=== PATIENT | male | born 1965 | race African-American/Black ===

== ENCOUNTER 2018-10-29 08:36 | Inpatient (IN) | payer OTHER ==
[2018-10-29 10:14] VITALS: BMI 29.4
--- NOTE | 2018-10-29 10:42 | HP ---
CIWA Score - Admission Criteria [facility] Guidelines: Admission for Medically Managed Detox: Requires at least one of the followin. CIWA greater than 12 2. Seizures within the past 24 hours 3. Delirium tremens within the past 24 hours 4. Hallucinations within the past 24 hours 5. Acute intervention needed for co occurring medical disorder 6. Acute intervention needed for co occurring psychiatric disorder 7. Severe withdrawal that cannot be handled at a lower level of care (continued vomiting, continued diarrhea, abnormal vital signs) requiring intravenous medication and/or fluids 8. Admission ROS [facility] - HPI Chief Complaint: i need help to stop drinking alcohol and pcp Allergies/Adverse Reactions: Allergies Allergy/AdvReac Type Severity Reaction Status Date / Time bee sting Allergy Uncoded 10/29/18 10:39 History of Present Illness: this 53 years old male with alcohol and pcp abuse,,last treatment in [facility],requested rehab hypertension on med tendinitis o right knee and ankle nicotine dependence depression no medication longest sobriety 2 years in detox treatment recently Exam Limitations: No Limitations - Ebola screening Have you traveled outside of the country in the last 21 days: No Have you had contact with anyone from an Ebola affected area: No Have you been sick,other than usual withdrawal symptoms: No Do you have a fever: No - Review of Systems Constitutional: No Symptoms Reported EENT: reports: No Symptoms Reported Respiratory: reports: No Symptoms reported Cardiac: reports: No Symptoms Reported GI: reports: No Symptoms Reported : reports: No Symptoms Reported Musculoskeletal: reports: No Symptoms Reported Integumentary: reports: No Symptoms Reported Neuro: reports: No Symptoms reported Endocrine: reports: No Symptoms Reported Hematology: reports: No Symptoms Reported Psychiatric: reports: Depressed Patient History - Patient Medical History Hx Anemia: No Hx Asthma: No Hx Chronic Obstructive Pulmonary Disease (COPD): No Hx Cardiac Disorders: No Hx Congestive Heart Failure: No Hx Hypertension: No (on med) Hx Hypercholesterolemia: No Hx Pacemaker: No HX Cerebrovascular Accident: No Hx Seizures: No Hx Dementia: No Hx Diabetes: No Hx Gastrointestinal Disorders: No Hx Liver Disease: No Hx Genitourinary Disorders: No Hx Sexually Transmitted Disorders: No Hx Renal Disease (ESRD): No Hx Thyroid Disease: No Hx Human Immunodeficiency Virus (HIV): No (last 2017 negative) Hx Hepatitis C: No Hx Depression: Yes (nomed) Hx Suicide Attempt: Yes (cutter at age 43) Hx Bipolar Disorder: No Hx Schizophrenia: No Other Medical History: no suicidal,no homicidal - Patient Surgical History Past Surgical History: No - PPD History Previous Implant?: Yes Documented Results: Negative w/o proof Implanted On Prior [facility] Admission?: No PPD to be Administered?: Yes - Smoking Cessation Smoking history: Current every day smoker Have you smoked in the past 12 months: Yes Aproximately how many cigarettes per day: 2 Cigars Per Day: 0 Hx Chewing Tobacco Use: No Initiated information on smoking cessation: Yes 'Breaking Loose' booklet given: 10/29/18 - Substance & Tx. History Hx Alcohol Use: Yes Hx Substance Use: Yes Substance Use Type: Alcohol Hx Substance Use Treatment: Yes ([facility] in 2018) - Substances Abused Alcohol Route: Oral Frequency: Daily Amount used: 5 of 24 ozs of beer Age of first use: 18 Date of Last Use: 10/27/18 PCP Route: Smoking Frequency: 1-2 times per week Amount used: 10$ Age of first use: 30 Date of Last Use: 10/27/18 Family Disease History - Family Disease History Family Disease History: Other: Father (alcohol,) Admission Physical Exam S - Vital Signs Vital Signs: Vital Signs - 24 hr 10/29/18 10:08 Temperature 97.1 F L Pulse Rate 70 Respiratory 18 Rate Blood Pressure 147/105 H - Physical General Appearance: Yes: Within Normal Limits HEENTM: Yes: Normal ENT Inspection, JUDI, Pharynx Normal Respiratory: Yes: Within Normal Limits, Lungs Clear, Normal Breath Sounds Neck: Yes: Within Normal Limits, Supple, Trachea in good position Breast: Yes: Within Normal Limits Cardiology: Yes: Within Normal Limits, Regular Rhythm, Regular Rate, S1, S2 Abdominal: Yes: Within Normal Limits, Normal Bowel Sounds, Non Tender, Flat, Soft Genitourinary: Yes: Within Normal Limits Back: Yes: Within Normal Limits Musculoskeletal: Yes: Within Normal Limits Extremities: Yes: Within Normal Limits Neurological: Yes: Within Normal Limits, analyst microbiology lab II-XII NML intact, Fully Oriented, Alert, Motor Strength 5/5 Integumentary: Yes: Within Normal Limits Lymphatic: Yes: Within Normal Limits - Diagnostic (1) Alcohol dependence Current Visit: Yes Status: Acute (2) PCP (phencyclidine) abuse Current Visit: Yes Status: Acute (3) Arthritis Current Visit: Yes Status: Acute (4) Essential hypertension Current Visit: Yes Status: Acute (5) Depression Current Visit: Yes Status: Acute Cleared for Admission [facility] - Detox or Rehab Claeared for Rehab Admission: Yes S Breath Alcohol Content Breath Alcohol Content: 0 Urine Drug Screen - Results Drug Screen Negative: Yes Inpatient Rehab Admission - Initial Determination Are CD services needed?: Yes Free of communicable disease: Yes Not in need of hospitalization: Yes - Rehab Admission Criteria Previous failed treatment: Yes Poor recovery environment: Yes Comorbidities: Yes Lacks judgement: No Patient is meeting Inpatient Rehab admission criteria:: Yes
[2018-10-29] MEDS ORDERED: P-EPHED 60MG/TRIPROLIDI 2.5MG TABLET PO PRN (11:51)
[2018-10-29] MEDS ORDERED: MAG HYDROX/AL HYDROX/SIMETH 30 ML UNIT-DOSE CUP PO PRN (11:51)
[2018-10-29] MEDS ORDERED: LOPERAMIDE HCL 2 MG CAPSULE PO PRN (11:51)
[2018-10-29] MEDS ORDERED: MENTHOL/PHENOL 1 EACH UD MM PRN (11:51)
[2018-10-29] MEDS ORDERED: MAGNESIUM HYDROX 2400MG/30ML ORAL SUSPENSION 30 ML CUP PO PRN (11:51)
[2018-10-29] MEDS ORDERED: MAGNESIUM CITRATE 300 ML BOTTLE PO PRN (11:51)
[2018-10-29] MEDS ORDERED: ACETAMINOPHEN 325 MG TABLET (FP) PO PRN (11:51)
[2018-10-29] MEDS ORDERED: hydrOXYzine PAMOATE 50 MG CAPSULE (FP) PO PRN (11:51)
[2018-10-29] MEDS ORDERED: IBUPROFEN 400 MG TABLET (FP) PO PRN (11:51)
[2018-10-29] MEDS ORDERED: guaiFENesin/D-METHORPHAN HB 10 ML UNIT-DOSE CUPS PO PRN (11:51)
[2018-10-29 14:43] LABS: HEMOGLOBIN 13.1 GM/dL (11.7-16.9); MCH 27.4 pg (25.7-33.7); MCHC 31.8 g/dl (32.0-35.9); MEAN PLT VOLUME 9.3 fl (7.5-11.1); PLATELET COUNT 269 K/MM3 (134-434); RBC 4.77 M/mm3 (4.00-5.60); RDW 13.8 % (11.9-15.9); WHITE BLOOD COUNT 11.6 K/mm3 (4.0-10.0)
[2018-10-29 15:01] LABS: ALBUMIN 3.8 g/dl (3.4-5.0); ALK PHOS 114 U/L (45-117); ANION GAP 7 MMOL/L (8-16); BILIRUBIN,TOTAL 0.3 mg/dL (0.2-1); BLOOD UREA NITROGEN 11 mg/dL (7-18); CALCIUM 8.6 mg/dL (8.5-10.1); CHLORIDE 99 mmol/L (98-107); CO2 27 mmol/L (21-32); CREATININE 0.9 mg/dL (0.55-1.3); GLUCOSE,RANDOM 96 mg/dL (74-106); POTASSIUM 3.9 mmol/L (3.5-5.1); SGOT/AST 24 U/L (15-37); SGPT/ALT 39 U/L (13-61); SODIUM 134 mmol/L (136-145); TOT PROT 7.3 g/dl (6.4-8.2)
[2018-10-29 17:39] LABS: URINE APPEARANCE CLEAR; URINE BILIRUBIN NEGATIVE (<2.0 mg/dL); URINE COLOR STRAW; URINE GLUCOSE (UA) NEGATIVE (NEGATIVE); URINE KETONE NEGATIVE (NEGATIVE); URINE LEUK ESTERASE NEGATIVE (NEGATIVE); URINE NITRITE NEGATIVE (NEGATIVE); URINE PROTEIN NEGATIVE (NEGATIVE); URINE UROBILINOGEN NEGATIVE mg/dL (0.2-1.0)
[2018-10-29] MEDS: THIAMINE HCL 100 MG TABLET (FP) PO SCH (21:08)
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
[2018-10-30] MEDS: PRENATAL VITAMINS W/ FOLIC ACID TABLET (FP) PO SCH (09:41)
--- NOTE | 2018-10-30 10:07 | EKG ---
Test Reason : Blood Pressure : / mmHG Vent. Rate : 073 BPM Atrial Rate : 073 BPM P-R Int : 136 ms QRS Dur : 138 ms QT Int : 428 ms P-R-T Axes : 019 270 053 degrees QTc Int : 471 ms NORMAL SINUS RHYTHM RIGHT BUNDLE BRANCH BLOCK ABNORMAL ECG NO PREVIOUS ECGS AVAILABLE Confirmed by Rhett Cruz MD ([id number]) on 10/30/2018 10:06:28 AM Referred By: Confirmed By:Rhett Cruz MD
[2018-10-30] MEDS: NAPROXEN 500 MG TABLET (FP) PO SCH (23:19)
[2018-10-30] MEDS: THIAMINE HCL 100 MG TABLET (FP) PO SCH (23:20)
[2018-10-31] MEDS: amLODIPine BESYLATE 10 MG TABLET (FP) PO SCH (09:50)
[2018-10-31] MEDS: PRENATAL VITAMINS W/ FOLIC ACID TABLET (FP) PO SCH (09:50)
[2018-10-31] MEDS: NAPROXEN 500 MG TABLET (FP) PO SCH (09:50)
--- NOTE | 2018-10-31 11:54 | PN ---
[facility] Progress Note Note: PT DECLINED TO CONTINUE WITH NAPROSYN. PT IS ALSO ON VOLTAREN. Vital Signs 10/31/18 10/31/18 06:43 09:00 Temperature 97.8 F 97.8 F Pulse Rate 71 86 Respiratory 18 18 Rate Blood Pressure 132/85 117/69 Laboratory Tests 10/29/18 10/29/18 10/29/18 12:00 12:00 12:00 WBC 11.6 H RBC 4.77 Hgb 13.1 Hct 41.0 MCV 86.0 MCH 27.4 MCHC 31.8 L RDW 13.8 Plt Count 269 MPV 9.3 Sodium 134 L Potassium 3.9 Chloride 99 Carbon Dioxide 27 Anion Gap 7 L BUN 11 Creatinine 0.9 Creat Clearance w eGFR > 60 Random Glucose 96 Calcium 8.6 Total Bilirubin 0.3 AST 24 ALT 39 Alkaline Phosphatase 114 Total Protein 7.3 Albumin 3.8 Urine Color Urine Appearance Urine pH Ur Specific Hope Urine Protein Urine Glucose (UA) Urine Ketones Urine Blood Urine Nitrite Urine Bilirubin Urine Urobilinogen Ur Leukocyte Esterase RPR Titer Nonreactive HIV 1&2 Antibody Screen HIV P24 Antigen 10/29/18 10/29/18 12:00 14:20 WBC RBC Hgb Hct MCV MCH MCHC RDW Plt Count MPV Sodium Potassium Chloride Carbon Dioxide Anion Gap BUN Creatinine Creat Clearance w eGFR Random Glucose Calcium Total Bilirubin AST ALT Alkaline Phosphatase Total Protein Albumin Urine Color Straw Urine Appearance Clear Urine pH 8.0 Ur Specific Hope 1.008 L Urine Protein Negative Urine Glucose (UA) Negative Urine Ketones Negative Urine Blood Negative Urine Nitrite Negative Urine Bilirubin Negative Urine Urobilinogen Negative Ur Leukocyte Esterase Negative RPR Titer HIV 1&2 Antibody Screen Negative HIV P24 Antigen Negative PLAN:D/C NAPROSYN RESTART VOLTAREN 75 MG PO BID
[2018-10-31] MEDS: MELATONIN 5 MG TABLETS PO PRN (21:28)
[2018-10-31] MEDS: THIAMINE HCL 100 MG TABLET (FP) PO SCH (21:28)
[2018-10-31] MEDS: DICLOFENAC SODIUM 75 MG TABLET.DR PO SCH (21:29)
[2018-11-01] MEDS: amLODIPine BESYLATE 10 MG TABLET (FP) PO SCH (09:44)
[2018-11-01] MEDS: PRENATAL VITAMINS W/ FOLIC ACID TABLET (FP) PO SCH (09:44)
[2018-11-01] MEDS: DICLOFENAC SODIUM 75 MG TABLET.DR PO SCH ×2 (09:44→22:03)
[2018-11-01] MEDS: MELATONIN 5 MG TABLETS PO PRN (22:03)
[2018-11-01] MEDS: THIAMINE HCL 100 MG TABLET (FP) PO SCH (22:03)
[2018-11-02] MEDS: PRENATAL VITAMINS W/ FOLIC ACID TABLET (FP) PO SCH (09:52)
[2018-11-02] MEDS: amLODIPine BESYLATE 10 MG TABLET (FP) PO SCH (09:52)
[2018-11-02] MEDS: DICLOFENAC SODIUM 75 MG TABLET.DR PO SCH ×2 (09:53→21:48)
[2018-11-02] MEDS: THIAMINE HCL 100 MG TABLET (FP) PO SCH (21:48)
[2018-11-02] MEDS: MELATONIN 5 MG TABLETS PO PRN (21:48)
[2018-11-03] MEDS: amLODIPine BESYLATE 10 MG TABLET (FP) PO SCH (09:32)
[2018-11-03] MEDS: PRENATAL VITAMINS W/ FOLIC ACID TABLET (FP) PO SCH (09:32)
[2018-11-03] MEDS: DICLOFENAC SODIUM 75 MG TABLET.DR PO SCH ×2 (09:32→21:04)
[2018-11-03] MEDS: THIAMINE HCL 100 MG TABLET (FP) PO SCH (21:04)
[2018-11-03] MEDS: MELATONIN 5 MG TABLETS PO PRN (21:04)
[2018-11-04] MEDS: DICLOFENAC SODIUM 75 MG TABLET.DR PO SCH ×2 (09:48→21:41)
[2018-11-04] MEDS: PRENATAL VITAMINS W/ FOLIC ACID TABLET (FP) PO SCH (09:48)
[2018-11-04] MEDS: amLODIPine BESYLATE 10 MG TABLET (FP) PO SCH (09:48)
[2018-11-04] MEDS ORDERED: PT OWN MED DRAWER 7, Y5N ONE (19:53)
[2018-11-04] MEDS: THIAMINE HCL 100 MG TABLET (FP) PO SCH (21:41)
[2018-11-04] MEDS: MELATONIN 5 MG TABLETS PO PRN (21:43)
[2018-11-05] MEDS: amLODIPine BESYLATE 10 MG TABLET (FP) PO SCH (10:07)
[2018-11-05] MEDS: PRENATAL VITAMINS W/ FOLIC ACID TABLET (FP) PO SCH (10:07)
[2018-11-05] MEDS: DICLOFENAC SODIUM 75 MG TABLET.DR PO SCH ×2 (10:07→21:34)
[2018-11-05] MEDS: THIAMINE HCL 100 MG TABLET (FP) PO SCH (21:34)
[2018-11-06] MEDS: DICLOFENAC SODIUM 75 MG TABLET.DR PO SCH ×2 (10:14→21:32)
[2018-11-06] MEDS: amLODIPine BESYLATE 10 MG TABLET (FP) PO SCH (10:14)
[2018-11-06] MEDS: PRENATAL VITAMINS W/ FOLIC ACID TABLET (FP) PO SCH (10:14)
[2018-11-06] MEDS: THIAMINE HCL 100 MG TABLET (FP) PO SCH (21:32)
[2018-11-07] MEDS: PRENATAL VITAMINS W/ FOLIC ACID TABLET (FP) PO SCH (09:49)
[2018-11-07] MEDS: DICLOFENAC SODIUM 75 MG TABLET.DR PO SCH ×2 (09:49→21:46)
[2018-11-07] MEDS: amLODIPine BESYLATE 10 MG TABLET (FP) PO SCH (09:49)
[2018-11-07] MEDS ORDERED: PT OWN MED DRAWER 7, Y5N ONE ×2 (11:28→19:34)
[2018-11-07] MEDS: MELATONIN 5 MG TABLETS PO PRN (21:33)
[2018-11-07] MEDS: THIAMINE HCL 100 MG TABLET (FP) PO SCH (21:46)
[2018-11-08] MEDS ORDERED: PT OWN MED DRAWER 7, Y5N ONE (08:18)
[2018-11-08] MEDS: amLODIPine BESYLATE 10 MG TABLET (FP) PO SCH (10:01)
[2018-11-08] MEDS: DICLOFENAC SODIUM 75 MG TABLET.DR PO SCH ×2 (10:01→21:33)
[2018-11-08] MEDS: PRENATAL VITAMINS W/ FOLIC ACID TABLET (FP) PO SCH (10:01)
[2018-11-08] MEDS: MELATONIN 5 MG TABLETS PO PRN (21:33)
[2018-11-08] MEDS: THIAMINE HCL 100 MG TABLET (FP) PO SCH (21:33)
[2018-11-09] MEDS: amLODIPine BESYLATE 10 MG TABLET (FP) PO SCH (10:10)
[2018-11-09] MEDS: PRENATAL VITAMINS W/ FOLIC ACID TABLET (FP) PO SCH (10:10)
[2018-11-09] MEDS: DICLOFENAC SODIUM 75 MG TABLET.DR PO SCH ×2 (10:12→21:23)
[2018-11-09] MEDS ORDERED: PT OWN MED DRAWER 7, Y5N ONE ×2 (10:14→18:25)
[2018-11-09] MEDS: THIAMINE HCL 100 MG TABLET (FP) PO SCH (21:23)
[2018-11-09] MEDS: MELATONIN 5 MG TABLETS PO PRN (21:23)
[2018-11-10] MEDS ORDERED: PT OWN MED DRAWER 7, Y5N ONE (08:28)
[2018-11-10] MEDS: PRENATAL VITAMINS W/ FOLIC ACID TABLET (FP) PO SCH (09:53)
[2018-11-10] MEDS: DICLOFENAC SODIUM 75 MG TABLET.DR PO SCH ×2 (09:53→21:35)
[2018-11-10] MEDS: amLODIPine BESYLATE 10 MG TABLET (FP) PO SCH (09:53)
[2018-11-10] MEDS: THIAMINE HCL 100 MG TABLET (FP) PO SCH (21:35)
[2018-11-10] MEDS: MELATONIN 5 MG TABLETS PO PRN (21:35)
[2018-11-11] MEDS: PRENATAL VITAMINS W/ FOLIC ACID TABLET (FP) PO SCH (10:07)
[2018-11-11] MEDS: DICLOFENAC SODIUM 75 MG TABLET.DR PO SCH ×2 (10:07→21:37)
[2018-11-11] MEDS: amLODIPine BESYLATE 10 MG TABLET (FP) PO SCH (10:08)
[2018-11-11] MEDS: MELATONIN 5 MG TABLETS PO PRN (21:37)
[2018-11-11] MEDS: THIAMINE HCL 100 MG TABLET (FP) PO SCH (21:37)
[2018-11-12] MEDS ORDERED: PT OWN MED DRAWER 7, Y5N ONE (09:22)
[2018-11-12] MEDS: DICLOFENAC SODIUM 75 MG TABLET.DR PO SCH ×2 (10:23→21:42)
[2018-11-12] MEDS: amLODIPine BESYLATE 10 MG TABLET (FP) PO SCH (10:23)
[2018-11-12] MEDS: PRENATAL VITAMINS W/ FOLIC ACID TABLET (FP) PO SCH (10:23)
[2018-11-12] MEDS: MELATONIN 5 MG TABLETS PO PRN (21:42)
[2018-11-12] MEDS: THIAMINE HCL 100 MG TABLET (FP) PO SCH (21:42)
[2018-11-13 06:38] VITALS: TEMP 97.7
--- NOTE | 2018-11-13 06:45 | PN ---
Psychiatric Progress Note Vital Signs: Vital Signs Period Temp Pulse Resp BP Sys/[place] Pulse Ox Last 24 Hr 97.7 F-97.9 F 69-74 18-19 119-140/74-88 Date of Session: 11/13/18 Chief Complaint:: Discharge Note HPI: Patient addressing Alcohol and Phencyclidine Dependence comorbid with Nicotine Dependence and Substance-Induced Sleep Disorder ROS: HTN, Arthritis were medically managed Current Medications: Active Medications Generic Name Dose Route Start Last Admin Trade Name Freq PRN Reason Stop Dose Admin Acetaminophen 650 mg 10/29/18 11:51 Tylenol - PO Q4H PRN FEVER Al Hydroxide/Mg Hydroxide 30 ml 10/29/18 11:51 11/09/18 23:37 Mylanta Oral Suspension - PO 30 ml Q6H PRN Administration DYSPEPSIA Amlodipine Besylate 10 mg 10/31/18 10:00 11/12/18 10:23 Norvasc - PO 10 mg DAILY SOIMARA Administration Diclofenac Sodium 75 mg 10/31/18 22:00 11/12/18 21:42 Voltaren - PO 75 mg BID SIOMARA Administration Eucalyptus/Menthol/Phenol/Sorbitol 1 each 10/29/18 11:51 Cepastat Lozenge - MM Q4H PRN SORE THROAT Guaifenesin 10 ml 10/29/18 11:51 Robitussin Dm - PO Q6H PRN COUGH Hydroxyzine Pamoate 50 mg 10/29/18 11:51 Vistaril - PO Q4H PRN AGITATION Loperamide HCl 4 mg 10/29/18 11:51 Imodium - PO Q6H PRN DIARRHEA Magnesium Citrate 300 ml 10/29/18 11:51 Citroma - PO Q48H PRN CONSTIPATION Magnesium Hydroxide 30 ml 10/29/18 11:51 Milk Of Magnesia - PO DAILY PRN CONSTIPATION Melatonin 5 mg 10/29/18 22:00 11/12/18 21:42 Melatonin PO 5 mg HS PRN Administration INSOMNIA Multivit/Folic Acid/Iron 1 tab 10/30/18 10:00 11/12/18 10:23 Vitamins ([facility]) - PO 1 tab DAILY SIOMARA Administration Pseudoephedrine/Triprolidine 1 combo 10/29/18 11:51 Actifed - PO TID PRN NASAL CONGESTION Thiamine HCl 100 mg 10/29/18 22:00 11/12/18 21:42 Vitamin B1 - PO 100 mg HS SIOMARA Administration Current Side Effect: No Lab tests ordered: Yes Lab tests reviewed: Yes Provider note:: Patient has completed this program today. He has met his treatment goals and will continue to address his issues in skilled nursing residential tretment at [facility] at [address] [place] [address]. Told database report writer that from his participation in this program, he has learned the importance of making meetings and get a sponsor. He is stable for discharge today Total face to face time:: 35 Mental Status Exam - Mental Status Exam Alert and Oriented to: Time, Place, Person Cognitive Function: Fair Patient Appearance: Well Groomed Mood: Hopeful, Euthymic Affect: Appropriate Patient Behavior: Cooperative Speech Pattern: Clear Voice Loudness: Normal Thought Process: Intact, Goal Oriented Thought Disorder: Not Present Hallucinations: Denies Suicidal Ideation: Denies Homicidal Ideation: Denies Sleep: Fair Appetite: Good Muscle strength/Tone: Normal Gait/Station: Normal Psychiatric Treatment Plan - Problem List (1) Alcohol dependence Current Visit: Yes (2) Phencyclidine dependence Current Visit: Yes (3) Nicotine dependence Current Visit: Yes (4) Substance-induced sleep disorder Current Visit: Yes (5) Arthritis Current Visit: Yes (6) Essential hypertension Current Visit: Yes Initial treatment plan: Patient is discharged today and referred to [facility] for skilled nursing residential treatment
[2018-11-13] MEDS: DICLOFENAC SODIUM 75 MG TABLET.DR PO SCH (09:00)
[2018-11-13] MEDS: PRENATAL VITAMINS W/ FOLIC ACID TABLET (FP) PO SCH (09:00)
[2018-11-13] MEDS: amLODIPine BESYLATE 10 MG TABLET (FP) PO SCH (09:00)
[2018-11-13] MEDS ORDERED: PT OWN MED DRAWER 7, Y5N ONE (09:08)
--- NOTE | 2018-11-13 09:43 | PN ---
[facility] Progress Note Note: PATIENT COMPLETED REHAB TODAY WITHOUT ADVERSE EVENT. PATIENT MEDICALLY STABLE AND DENIES SI/HI. PATIENT ALERT AND ORIENTED X 3. DENIES HEADACHE, CHEST PAIN, N /V/D, DIZZINESS, SWEATING AND ANXIETY. PATIENT SENT MEDICATION AMLODIPINE/ NAPROSYN TO PREFERRED PHARMACY. PATIENT EXPLAINED USE AND SIDE EFFECTS OF MEDICATIONS. PATIENT ADVISED TO FOLLOW UP WITH PCP WITHIN ONE WEEK OF DISCHARGE AND ENCOURAGE TO CONTINUE WITH OUTPATIENT SERVICES TO PREVENT RELAPSE. PATIENT STATES HE HAS FOLLOW OUT PATIENT SERVICES SCHEDULE FOR [facility]. Vital Signs Temperature 97.7 F 11/13/18 06:37 Pulse Rate 69 11/13/18 06:37 Respiratory Rate 19 11/13/18 06:37 Blood Pressure 140/79 11/13/18 06:37 O2 Sat by Pulse Oximetry (%)
[2018-11-13 09:50] VITALS: BP 112/71; PULSE 77
== END 2018-11-13 09:30 | disposition home or self-care (01) | DRG 772 ==
LOC: YASAS 08:36 → Y3W 11:44
PROVIDERS: ADMIT Psychiatry & Neurology Psychiatry; ATTEND Psychiatry & Neurology Psychiatry
PROC: HZ42ZZZ Group Counseling for Substance Abuse Treatment, Cognitive-Behavioral (ICD-10-PCS; principal; 2018-10-29)
DX: F10.20 Alcohol dependence, uncomplicated (principal); F16.10 Hallucinogen abuse, uncomplicated; F17.210 Nicotine dependence, cigarettes, uncomplicated; F19.282 Other psychoactive substance dependence with psychoactive substance-induced sleep disorder; F32.9 Major depressive disorder, single episode, unspecified; I10 Essential (primary) hypertension; M19.90 Unspecified osteoarthritis, unspecified site; Z91.038 Other insect allergy status; Z91.5 Personal history of self-harm
CPT/HCPCS: 36415; 80053; 81003; 85027; 86593; 87389; 93005; 93010